=== PATIENT | male | born 1980 | race Caucasian/White ===

== ENCOUNTER 2017-03-11 09:01 | Day surgery (SDC) | payer BC ==
[~2017-03-11 09:01] MED LIST: Lactated Ringers 1,000 ML IV SCH; Sodium Chloride 0.9% 10 ML Syringe FLUSH PRN
[2017-03-11] MEDS ORDERED: fentaNYL 100 MCG/2 ML SDV ONE ×2 (10:09→10:25)
[2017-03-11] MEDS ORDERED: Midazolam 1 MG/ML 2 ML SDV ONE ×2 (10:10→10:25)
[2017-03-11] MEDS ORDERED: Ketamine 500 mg/10 ML MDV ONE ×2 (10:10→10:25)
[2017-03-11] MEDS ORDERED: Propofol 200 MG/20 ML SDV ONE ×2 (10:11→10:25)
--- NOTE | 2017-03-11 10:18 | PCM.PN ---
- General Info Date of Service: 03/11/17 - Review of Systems Systems Review Comment:: 37-year-old male here for hemorrhoidectomy. He is medically stable to proceed today with no significant recent change in his health status. His recent history and physical is reviewed and there is no significant change from that time. I have discussed the proposed operative procedure with the patient. Questions are answered. He agrees to proceed accepting risks. - Patient Data Vitals - Most Recent: Last Vital Signs Temp 98.5 F 03/11/17 09:22 Pulse 101 H 03/11/17 09:22 Resp 20 03/11/17 09:22 BP 142/85 H 03/11/17 09:22 Pulse Ox 100 03/11/17 09:22 Weight - Most Recent: 69.853 kg Med Orders - Current: Current Medications Lactated Ringer's (Ringers, Lactated) 1,000 mls @ 125 mls/hr IV ASDIRECTED JED Last Admin: 03/11/17 09:45 Dose: 125 mls/hr Sodium Chloride (Saline Flush) 10 ml FLUSH ASDIRECTED PRN PRN Reason: Keep Vein Open Discontinued Medications Fentanyl (Sublimaze) Confirm Administered Dose 100 mcg .ROUTE .STK-MED ONE Stop: 03/11/17 10:10 Ketamine HCl (Ketalar) Confirm Administered Dose 500 mg .ROUTE .STK-MED ONE Stop: 03/11/17 10:11 Midazolam HCl (Versed 1 Mg/Ml) Confirm Administered Dose 4 mg .ROUTE .STK-MED ONE Stop: 03/11/17 10:11 Propofol (Diprivan 20 Ml) Confirm Administered Dose 400 mg .ROUTE .STK-MED ONE Stop: 03/11/17 10:12 - Problem List Review Problem List Initiated/Reviewed/Updated: Yes - My Orders Last 24 Hours: My Active Orders 03/11/17 09:00 Patient Status [ADT] Routine Peripheral IV Care [RC] . DIRECTED Verify Patient Consent Obtain [RC] ASDIRECTED Lactated Ringers [Ringers, Lactated] 1,000 ml IV ASDIRECTED Sodium Chloride 0.9% [Saline Flush] 10 ml FLUSH ASDIRECTED PRN Peripheral IV Insertion Adult [OM.PC] Routine - Assessment Assessment:: Symptomatic hemorrhoids - Plan Plan:: Hemorrhoidectomy
[2017-03-11] MEDS ORDERED: ceFAZolin 1 GM Vial ONE (10:25)
[2017-03-11] MEDS ORDERED: Lidocaine 2% with EPINEPHrine 1:100,000 20 ML MDV INJECT ONE (10:51)
[2017-03-11] MEDS ORDERED: Bupivacaine 0.25% 10 ML SDV INJECT ONE (10:52)
--- NOTE | 2017-03-11 11:43 | PCM.OPNOTE ---
- General Post-Op/Procedure Note Date of Surgery/Procedure: 03/11/17 Operative Procedure(s): Hemorrhoidectomy Findings: 3 Moderate sized hemorrhoids Pre Op Diagnosis: Symptomatic hemorrhoids Post-Op Diagnosis: Same Anesthesia Technique: Local, MAC Primary Surgeon: Stalin Jiang Pathology: Hemorrhoids Output, Urine Amount: 0 EBL in mLs: 50 Complications: None Condition: Good Free Text/Narrative:: Intake & Output 03/10/17 03/11/17 03/11/17 22:59 06:59 14:59 Intake Total 1100 Balance 1100
[2017-03-11 14:07] VITALS: BP 144/82
--- NOTE | 2017-03-12 07:58 | OR ---
Date of Procedure: 03/11/2017 PREOPERATIVE DIAGNOSIS: Symptomatic hemorrhoids. POSTOPERATIVE DIAGNOSIS: Symptomatic hemorrhoids. OPERATION PERFORMED: Hemorrhoidectomy. INDICATIONS FOR SURGERY: This 37-year-old male has developed symptoms of prominent hemorrhoids. He has had a small amount of bleeding from them, and comes now for hemorrhoidectomy. FINDINGS: The patient has three significant hemorrhoids. The largest of these is at the 11 o'clock position on the patient's right side, this is a moderate to large size internal and external hemorrhoid complex. The smaller external hemorrhoids were noted at the 7 and 4 o'clock positions. Structures otherwise appeared normal. PROCEDURE IN DETAIL: The patient was taken to the operating room. He was placed in dorsal lithotomy position, and the perirectal area was sterilely prepped with Betadine and draped. Under good IV sedation, local infiltration of the perirectal area was performed with Xylocaine-Marcaine mix with epinephrine. Digital dilation of the anal canal was performed, and then the operating anoscope was inserted. Findings were as described above. In turn, each of these three hemorrhoids was excised. The hemorrhoidal vessels were suture ligated with 2-0 Vicryl. The hemorrhoid itself was excised preserving the underlying sphincter muscle. The mucosal defect at each location was closed with a running 2-0 Vicryl. The three hemorrhoids are thereby removed, and there was no evidence of any complication. Inspection showed good hemostasis to be maintained. A dibucaine ointment covered, Adaptic pack was placed. Sterile dressing was applied. The patient was then taken from the operating room in satisfactory condition. ESTIMATED BLOOD LOSS: 50 mL. COMPLICATIONS: None. PROGNOSIS: Good. CAROLE Jiang MD /[id number]
== END 2017-03-11 13:08 | disposition home or self-care (01) ==
LOC: LL.SDS 09:01
PROVIDERS: ATTEND Surgery
DX: K64.8 Other hemorrhoids (principal); K64.4 Residual hemorrhoidal skin tags; Z88.6 Allergy status to analgesic agent
CPT/HCPCS: 46255; J0690; J2250; J2704; J3010; J7120

== ENCOUNTER 2020-12-10 11:40 | Emergency (ER) | payer BC ==
[2020-12-10] MEDS ORDERED: Lactated Ringers 1,000 ML IV ONE (11:52)
[2020-12-10] MEDS ORDERED: Ondansetron 4 MG/2 ML SDV IV ONE (11:52)
[2020-12-10] MEDS ORDERED: LORazepam 2 MG/ML SDV IVPUSH ONE (11:53)
[2020-12-10] MEDS ORDERED: Folic Acid 1 MG Tab PO ONE (11:54)
[2020-12-10] MEDS ORDERED: Thiamine 100 MG Tab PO ONE (11:54)
[2020-12-10] MEDS ORDERED: Multivitamin Tab PO STA (11:54)
--- NOTE | 2020-12-10 12:00 | EDM.PDOC ---
ED HPI GENERAL MEDICAL PROBLEM - General Chief Complaint: General Stated Complaint: cramping Time Seen by Provider: 12/10/20 11:45 Source of Information: Reports: Patient History Limitations: Reports: No Limitations - History of Present Illness INITIAL COMMENTS - FREE TEXT/NARRATIVE: Patient comes emergency department today from work with complaints of generalized shaking and cramping. This patient denies any chronic medical history other than alcohol usage. He reports that he drinks alcohol on a daily basis about 6-10 beers daily. Today while he was at work he was just overcome by generalized shaking throughout his body and anxiety. He has abdominal cramping. Nausea without vomiting. No chest pain no shortness of breath or difficulty breathing. No cough or congestion. No fever no chills. No hematuria dysuria urinary frequency. No black or tarry stools. He denies any history of pancreatitis or alcohol withdrawal syndrome. NO hallucinations or delusions or confusion. His last alcohol intake was last evening. He had a similar episode a few years ago at the same time of the day when he went to work. chest arms hands Pain Score (Numeric/FACES): 5 - Related Data Allergies Allergy/AdvReac Type Severity Reaction Status Date / Time ibuprofen Allergy Hives Verified 12/10/20 11:42 Home Meds: Home Meds Metoprolol Succinate [Toprol XL] 25 mg PO DAILY #30 tab.er 01/07/18 [Rx] Calcium Acetate [PhosLo] 667 mg PO DAILY #5 cap 12/10/20 [Rx] Folic Acid 1 mg PO DAILY #30 tab 12/10/20 [Rx] Magnesium Oxide 400 mg PO DAILY #8 tab 12/10/20 [Rx] Thiamine [Vitamin B-1] 100 mg PO DAILY #30 tablet 12/10/20 [Rx] amLODIPine [Norvasc] 10 mg PO DAILY 12/10/20 [History] Past Medical History HEENT History: Reports: None Cardiovascular History: Reports: Hypertension, Other (See Below) Other Cardiovascular History: Hypertension with no medical therapy to this point. Respiratory History: Reports: Other (See Below) Other Respiratory History: Possible left rib fracture at age 16. Gastrointestinal History: Reports: Hemorrhoids, Other (See Below) Other Gastrointestinal History: Hemorrhoidectomy as below. Genitourinary History: Reports: None Musculoskeletal History: Reports: Arthritis, Fracture, Neck Pain, Chronic, Osteo arthritis, Other (See Below) Other Musculoskeletal History: Possible rib fracture as above. Minimal scoliosis. Neurological History: Reports: Headaches, Chronic Psychiatric History: Reports: None Endocrine/Metabolic History: Reports: None Hematologic History: Reports: None Immunologic History: Reports: None Oncologic (Cancer) History: Reports: None Dermatologic History: Reports: None - Infectious Disease History Infectious Disease History: Reports: Chicken Pox - Past Surgical History Head Surgeries/Procedures: Reports: None HEENT Surgical History: Reports: Oral Surgery, Other (See Below) Other HEENT Surgeries/Procedures: Price teeth extraction 4 in his late 20s. Cardiovascular Surgical History: Reports: None Respiratory Surgical History: Reports: None GI Surgical History: Reports: Appendectomy, Colonoscopy, EGD, Other (See Below) Other GI Surgeries/Procedures: Appendectomy at about age 13. Hemorrhoidectomy on 03/11/17. EGD and colonoscopy on 09/07/13. Male Surgical History: Reports: Circumcision, Vasectomy, Other (See Below) Other Male Surgeries/Procedures: Vasectomy in 2007. Circumcision as an infan t. Neurological Surgical History: Reports: None Musculoskeletal Surgical History: Reports: None Oncologic Surgical History: Reports: None Dermatological Surgical History: Reports: None - Past Imaging History Past Imaging History: Reports: CAT Scan (CT scan of the abdomen and pelvis on 09/04/13.), MRI (MRI of right shoulder in about 2011.), Ultrasound (Abdominal ultrasound on 08/17/07.) Social & Family History - Family History HEENT: Reports: Macular Degeneration, Other (See Below) Other HEENT Family History: Father with macular degeneration. Cardiac: Reports: CAD, Heart Murmur, Hypertension, LA, Stent, Other (See Below) Other Cardiac Family History: Hypertension in parents and sister. Maternal grandmother with LA and PTCA/stents 2 in her 60s. Maternal great aunts 3 with valvular disease. Mother with acute LA Respiratory: Reports: None GI: Reports: None : Reports: Diabetic Nephropathy, Renal Disease/Insufficiency, Other (See Below) Other Family History: Maternal grandmother with fatal diabetic nephropathy at age 86. OBGYN: Reports: None Musculoskeletal: Reports: None Neurological: Reports: None Psychiatric: Reports: None Endocrine/Metabolic: Reports: Diabetes, type II, IDDM, Other (See Below) Other Endocrine/Metabolic Family History: Maternal grandmother with IDDM. Hematologic: Reports: None Immunologic: Reports: None Dermatologic: Reports: None Oncologic: Reports: Hodgkin's Lymphoma, Lymphoma, Other (See Below) Other Oncologic Family History: Maternal grandfather with with history of unknown type of metastatic cancer in his 70s. Son with AML at age 8 and Hodgkin's lymphoma at age 10. - Caffeine Use Caffeine Use: Reports: Coffee (5 cups per day), Soda (1 soda per day). Denies: Energy Drinks, Tea - Living Situation & Occupation Living situation: Reports: (2003, 4 children) Occupation: Employed ([employer]) ED ROS GENERAL - Review of Systems Review Of Systems: Comprehensive ROS is negative, except as noted in HPI. ED EXAM, GENERAL - Physical Exam Exam: See Below Free Text/Narrative:: Pt is sitting and has a fine shaking tremor to all extremities. No ocular nerve palsy noted. No delirium or hallucinations. Exam Limited By: No Limitations General Appearance: Alert, WD/WN, Anxious Eye Exam: Bilateral Eye: EOMI, PERRL Ears: Normal External Exam, Normal TMs Nose: Normal Inspection Throat/Mouth: Normal Inspection, Normal Lips, Normal Teeth, Normal Voice Head: Atraumatic, Normocephalic Neck: Normal Inspection, Supple, Non-Tender, Full Range of Motion Respiratory/Chest: No Respiratory Distress, Lungs Clear, Normal Breath Sounds, No Accessory Muscle Use, Chest Non-Tender Cardiovascular: Normal Peripheral Pulses, Regular Rate, Rhythm, Tachycardia Peripheral Pulses: 2+: Radial (L), Radial (R), Posterior Tibial (L), Posterior Tibial (R), Dorsalis Pedis (L), Dorsalis Pedis (R) GI/Abdominal: Normal Bowel Sounds, Soft, Non-Tender, No Distention (Male) Exam: Deferred Rectal (Males) Exam: Deferred Back Exam: Normal Inspection, Full Range of Motion Extremities: Normal Inspection, Normal Range of Motion, No Pedal Edema, Normal Capillary Refill Neurological: Alert, Oriented, Normal Cognition, No Motor/Sensory Deficits Psychiatric: Anxious Skin Exam: Warm, Dry, Intact, Normal Color Lymphatic: No Adenopathy Course - Vital Signs Last Recorded V/S: Last Vital Signs Temp 98.4 F 12/10/20 11:40 Pulse 95 12/10/20 11:40 Resp 18 12/10/20 11:40 BP Pulse Ox 98 12/10/20 11:40 - Orders/Labs/Meds Orders: Active Orders 24 hr Category Date Time Status Lactated Ringers [Ringers, Lactated] 1,000 ml Med 12/10/20 13:00 Active IV ASDIRECTED Medication Orders Lactated Ringer's (Ringers, Lactated) 1,000 mls @ 250 mls/hr IV ASDIRECTED JED Last Admin: 12/10/20 13:04 Dose: 250 mls/hr Documented by: RADHA Labs: Laboratory Tests 12/10/20 12/10/20 12/10/20 Range/Units 12:05 12:05 12:05 WBC 9.9 (4.0-10.2) K/uL RBC 4.62 (4.33-5.41) M/uL Hgb 15.5 (13.1-16.8) g/dL Hct 43.2 (39.0-49.0) % MCV 93.5 (84.0-98.0) fL MCH 33.5 H (28.2-33.3) pg MCHC 35.9 (31.7-36.0) g/dL RDW 12.0 (11.2-14.1) % Plt Count 217 (150-350) K/uL Neut % (Auto) 77.8 (45.0-80.0) % Lymph % (Auto) 13.4 (10.0-50.0) % [facility] % (Auto) 8.6 (2.0-14.0) % Eos % (Auto) 0.0 (0.0-5.0) % Baso % (Auto) 0.2 (0.0-2.0) % Neut # (Auto) 7.69 H (1.40-7.00) K/uL Lymph # (Auto) 1.32 (0.50-3.50) K/uL [facility] # (Auto) 0.85 (0.00-1.00) K/uL Eos # (Auto) 0.00 (0.00-0.50) K/uL Baso # (Auto) 0.02 (0.00-0.20) K/uL VBG pH (7.31-7.41) VBG pCO2 (41-51) mmHG VBG pO2 mmHG VBG HCO3 (23-28) mmol/L VBG Total CO2 mmol/L VBG O2 Saturation % VBG Base Excess ((-2)-3) mmol/L O2 Delivery Device Sodium (136-145) mmol/L Potassium (3.5-5.1) mmol/L Chloride (98-107) mmol/L Carbon Dioxide (21.0-32.0) mmol/L Anion Gap (7-15) meq/L BUN (7-18) mg/dL Creatinine (0.51-1.17) mg/dL Est Cr Clr Drug Dosing Estimated GFR (MDRD) mL/min Glucose (70-99) mg/dL Lactic Acid (0.4-2.0) mmol/L Calcium (8.5-10.1) mg/dL Phosphorus (2.6-4.7) mg/dL Magnesium (1.8-2.4) mg/dL Total Bilirubin (0.2-1.0) mg/dL AST (15-37) U/L ALT (12-78) U/L Alkaline Phosphatase (46-116) IU/L Creatine Kinase (26-308) U/L Total Protein (6.4-8.2) g/dL Albumin (3.4-5.0) g/dL Lipase (73-393) U/L TSH, Ultra Sensitive (0.358-3.740) mIU/mL Specimen Type Urinvoid Urine Color Yellow Urine Appearance Clear Urine pH 7.5 (5.0-9.0) Ur Specific [place] 1.020 (1.005-1.030) Urine Protein Negative (NEGATIVE) mg/dL Urine Glucose (UA) Negative (NEGATIVE) mg/dL Urine Ketones 15 H (NEGATIVE) mg/dL Urine Occult Blood Negative (NEGATIVE) Urine Nitrite Negative (NEGATIVE) Urine Bilirubin Negative (NEGATIVE) Urine Urobilinogen 0.2 (0.2-1.0) E.U./dL Ur Leukocyte Esterase Negative (NEGATIVE) Urine Opiates Screen Negative (NEGATIVE) Ur Buprenorphine Scrn Negative (NEGATIVE) Ur Oxycodone Screen Negative (NEGATIVE) Ur EDDP (Meth Metab) Negative (NEGATIVE) Ur Barbiturates Screen Negative (NEGATIVE) Ur Tricyclics Screen Negative (NEGATIVE) Ur Amphetamine Screen Negative (NEGATIVE) U Methamphetamines Scrn Negative (NEGATIVE) Urine MDMA Screen Negative (NEGATIVE) U Benzodiazepines Scrn Negative (NEGATIVE) U Cocaine Metab Screen Negative (NEGATIVE) U Marijuana (THC) Screen Negative (NEGATIVE) Ethyl Alcohol (0.000-0.080) g/dL 12/10/20 12/10/20 12/10/20 Range/Units 12:05 12:05 12:05 WBC (4.0-10.2) K/uL RBC (4.33-5.41) M/uL Hgb (13.1-16.8) g/dL Hct (39.0-49.0) % MCV (84.0-98.0) fL MCH (28.2-33.3) pg MCHC (31.7-36.0) g/dL RDW (11.2-14.1) % Plt Count (150-350) K/uL Neut % (Auto) (45.0-80.0) % Lymph % (Auto) (10.0-50.0) % [facility] % (Auto) (2.0-14.0) % Eos % (Auto) (0.0-5.0) % Baso % (Auto) (0.0-2.0) % Neut # (Auto) (1.40-7.00) K/uL Lymph # (Auto) (0.50-3.50) K/uL [facility] # (Auto) (0.00-1.00) K/uL Eos # (Auto) (0.00-0.50) K/uL Baso # (Auto) (0.00-0.20) K/uL VBG pH 7.58 H (7.31-7.41) VBG pCO2 26 L (41-51) mmHG VBG pO2 43 mmHG VBG HCO3 24 (23-28) mmol/L VBG Total CO2 25 mmol/L VBG O2 Saturation 87 % VBG Base Excess 4 H ((-2)-3) mmol/L O2 Delivery Device Room air Sodium 139 (136-145) mmol/L Potassium 3.4 L (3.5-5.1) mmol/L Chloride 101 (98-107) mmol/L Carbon Dioxide 24.9 (21.0-32.0) mmol/L Anion Gap 16.5 H (7-15) meq/L BUN 17 (7-18) mg/dL Creatinine 0.83 (0.51-1.17) mg/dL Est Cr Clr Drug Dosing TNP Estimated GFR (MDRD) > 60 mL/min Glucose 94 (70-99) mg/dL Lactic Acid 2.2 H (0.4-2.0) mmol/L Calcium 9.4 (8.5-10.1) mg/dL Phosphorus 1.1 L* (2.6-4.7) mg/dL Magnesium 1.6 L (1.8-2.4) mg/dL Total Bilirubin 0.6 (0.2-1.0) mg/dL AST 45 H (15-37) U/L ALT 54 (12-78) U/L Alkaline Phosphatase 63 (46-116) IU/L Creatine Kinase 199 (26-308) U/L Total Protein 7.7 (6.4-8.2) g/dL Albumin 4.4 (3.4-5.0) g/dL Lipase 85 (73-393) U/L TSH, Ultra Sensitive (0.358-3.740) mIU/mL Specimen Type Urine Color Urine Appearance Urine pH (5.0-9.0) Ur Specific [place] (1.005-1.030) Urine Protein (NEGATIVE) mg/dL Urine Glucose (UA) (NEGATIVE) mg/dL Urine Ketones (NEGATIVE) mg/dL Urine Occult Blood (NEGATIVE) Urine Nitrite (NEGATIVE) Urine Bilirubin (NEGATIVE) Urine Urobilinogen (0.2-1.0) E.U./dL Ur Leukocyte Esterase (NEGATIVE) Urine Opiates Screen (NEGATIVE) Ur Buprenorphine Scrn (NEGATIVE) Ur Oxycodone Screen (NEGATIVE) Ur EDDP (Meth Metab) (NEGATIVE) Ur Barbiturates Screen (NEGATIVE) Ur Tricyclics Screen (NEGATIVE) Ur Amphetamine Screen (NEGATIVE) U Methamphetamines Scrn (NEGATIVE) Urine MDMA Screen (NEGATIVE) U Benzodiazepines Scrn (NEGATIVE) U Cocaine Metab Screen (NEGATIVE) U Marijuana (THC) Screen (NEGATIVE) Ethyl Alcohol 0.001 (0.000-0.080) g/dL 12/10/20 Range/Units 12:05 WBC (4.0-10.2) K/uL RBC (4.33-5.41) M/uL Hgb (13.1-16.8) g/dL Hct (39.0-49.0) % MCV (84.0-98.0) fL MCH (28.2-33.3) pg MCHC (31.7-36.0) g/dL RDW (11.2-14.1) % Plt Count (150-350) K/uL Neut % (Auto) (45.0-80.0) % Lymph % (Auto) (10.0-50.0) % [facility] % (Auto) (2.0-14.0) % Eos % (Auto) (0.0-5.0) % Baso % (Auto) (0.0-2.0) % Neut # (Auto) (1.40-7.00) K/uL Lymph # (Auto) (0.50-3.50) K/uL [facility] # (Auto) (0.00-1.00) K/uL Eos # (Auto) (0.00-0.50) K/uL Baso # (Auto) (0.00-0.20) K/uL VBG pH (7.31-7.41) VBG pCO2 (41-51) mmHG VBG pO2 mmHG VBG HCO3 (23-28) mmol/L VBG Total CO2 mmol/L VBG O2 Saturation % VBG Base Excess ((-2)-3) mmol/L O2 Delivery Device Sodium (136-145) mmol/L Potassium (3.5-5.1) mmol/L Chloride (98-107) mmol/L Carbon Dioxide (21.0-32.0) mmol/L Anion Gap (7-15) meq/L BUN (7-18) mg/dL Creatinine (0.51-1.17) mg/dL Est Cr Clr Drug Dosing Estimated GFR (MDRD) mL/min Glucose (70-99) mg/dL Lactic Acid (0.4-2.0) mmol/L Calcium (8.5-10.1) mg/dL Phosphorus (2.6-4.7) mg/dL Magnesium (1.8-2.4) mg/dL Total Bilirubin (0.2-1.0) mg/dL AST (15-37) U/L ALT (12-78) U/L Alkaline Phosphatase (46-116) IU/L Creatine Kinase (26-308) U/L Total Protein (6.4-8.2) g/dL Albumin (3.4-5.0) g/dL Lipase (73-393) U/L TSH, Ultra Sensitive 0.614 (0.358-3.740) mIU/mL Specimen Type Urine Color Urine Appearance Urine pH (5.0-9.0) Ur Specific [place] (1.005-1.030) Urine Protein (NEGATIVE) mg/dL Urine Glucose (UA) (NEGATIVE) mg/dL Urine Ketones (NEGATIVE) mg/dL Urine Occult Blood (NEGATIVE) Urine Nitrite (NEGATIVE) Urine Bilirubin (NEGATIVE) Urine Urobilinogen (0.2-1.0) E.U./dL Ur Leukocyte Esterase (NEGATIVE) Urine Opiates Screen (NEGATIVE) Ur Buprenorphine Scrn (NEGATIVE) Ur Oxycodone Screen (NEGATIVE) Ur EDDP (Meth Metab) (NEGATIVE) Ur Barbiturates Screen (NEGATIVE) Ur Tricyclics Screen (NEGATIVE) Ur Amphetamine Screen (NEGATIVE) U Methamphetamines Scrn (NEGATIVE) Urine MDMA Screen (NEGATIVE) U Benzodiazepines Scrn (NEGATIVE) U Cocaine Metab Screen (NEGATIVE) U Marijuana (THC) Screen (NEGATIVE) Ethyl Alcohol (0.000-0.080) g/dL Meds: Medications Generic Name Dose Route Start Last Admin Trade Name Freq PRN Reason Stop Dose Admin Lactated Ringer's 1,000 mls @ 250 mls/hr 12/10/20 13:00 12/10/20 13:04 Ringers, Lactated IV 250 mls/hr ASDIRECTED JED Administration Discontinued Medications Generic Name Dose Route Start Last Admin Trade Name Freq PRN Reason Stop Dose Admin Folic Acid 1 mg 12/10/20 11:54 12/10/20 12:26 Folic Acid 1 Mg Tab PO 12/10/20 11:55 1 mg ONETIME ONE Administration Lactated Ringer's 1,000 mls @ 1,000 mls/hr 12/10/20 11:52 12/10/20 11:55 Ringers, Lactated IV 12/10/20 12:51 1,000 mls/hr .BOLUS ONE Administration Magnesium Sulfate 2 gm/ Premix 50 mls @ 25 mls/hr 12/10/20 13:21 12/10/20 13:32 IV 12/10/20 15:20 25 mls/hr ONETIME ONE Administration Lorazepam 1 mg 12/10/20 11:53 11/02/21 12:23 Lorazepam 2 Mg/Ml Sdv IVPUSH 12/10/20 11:54 1 mg ONETIME ONE Administration Multivitamins/Minerals/Vitamin C 1 tab 12/10/20 11:54 12/10/20 12:26 Multivitamin Tab PO 12/10/20 11:55 1 tab NOW STA Administration Ondansetron HCl 4 mg 12/10/20 11:52 12/10/20 12:26 Ondansetron 4 Mg/2 Ml Sdv IV 12/10/20 11:53 4 mg ONETIME ONE Administration Potassium Phos/Sodium Phos 1 each 12/10/20 12:45 12/10/20 13:04 Potassium Phosphate,Mb-Db/Sodium Phosphate,Mb-Db Packet PO 12/10/20 12:46 1 each NOW STA Administration Thiamine HCl 100 mg 12/10/20 11:54 12/10/20 12:26 Thiamine 100 Mg Tab PO 12/10/20 11:55 100 mg ONETIME ONE Administration Thiamine HCl Confirm 12/10/20 12:34 12/10/20 12:45 Thiamine 100 Mg Tab Administered 12/10/20 12:35 Not Given Dose 100 mg .ROUTE .STK-MED ONE - Re-Assessments/Exams Free Text/Narrative Re-Assessment/Exam: 12/10/20 12:07 IV established. Labs drawn. LR 1 liter wide open. Zofran and Ativan. CBC is rather unremarkable. CMP with a potassium 3.4, anion gap 16.5, creatinine BUN. Normal liver enzymes. Magnesium 1.6. 2 g magnesium sulfate IV piggyback. Phosphorus 1.1. Given sodium phosphate oral packet. Patient also received multivitamins thiamine and folic acid. After the above therapy the patient feels quite a bit better. His shaking and muscle spasms has resolved. CPK is normal at 199. TSH is normal. Lipase is normal. Patient does feel quite a bit better primarily after the Ativan. With his history of high-volume daily alcohol intake is severe hypophosphatemia hypomagnesemia hypokalemia his anxiety and shaking upon arrival I really have concerns that this is acute alcohol withdrawal. There is no evidence of delirium but he definitely had tremors upon arrival. 12/10/20 15:18 The patient is uninterested at this time to quit drinking and will continue tonight. So i do not feel that it is appropriate to dose with ativan at this time to prevent withdrawal as he we will continue drinking. I discussed the importance of him considering alcohol assessment and treatment although the patient is resistant at this time. I will treat for electrolyte abnormalities as well and advise him to follow up with PCP for alcohol use disorder which he is resistant to. Discharge instructions as below were explained to the patient he was comfortable with this plan and his questions answered. Departure - Departure Time of Disposition: 14:30 Disposition: Home, Self-Care 01 Clinical Impression: Alcohol use disorder, Hypokalemia, Hypophosphatemia, Hypomagnesemia Alcohol withdrawal Qualifiers: Complication of substance-induced condition: uncomplicated Qualified Code(s): F10.230 - Alcohol dependence with withdrawal, uncomplicated - Discharge Information *PRESCRIPTION DRUG MONITORING PROGRAM REVIEWED*: Not Applicable *COPY OF PRESCRIPTION DRUG MONITORING REPORT IN PATIENT SCOTTIE: Not Applicable Prescriptions: Folic Acid 1 mg PO DAILY #30 tab Magnesium Oxide 400 mg PO DAILY #8 tab Calcium Acetate [PhosLo] 667 mg PO DAILY #5 cap Thiamine [Vitamin B-1] 100 mg PO DAILY #30 tablet Instructions: Hypophosphatemia, Phosphate Test Referrals: Jimy Boyd PA [Primary Care Provider] - Forms: ED Department Discharge Additional Instructions: Drink plenty of fluids especially electrolyte containing fluids like gatorade and or powerade. Eat regular small meals. See your PCP wednesday or wednesday for recheck of electrolytes and consideration of alcohol use assessment. Calcium Acetate 1 tab daily for the next 5 days. RX sent to the pharmacy. Daily OTC multivitamin. Thiamine 1 tab daily. Folic Acid 1 tab daily. Consider discontinuation of alcohol consumption is advised at this time. Return to the ED if new or worsening symptoms. Sepsis Event Note (ED) - Focused Exam Vital Signs: Vital Signs Temp Temp Pulse Resp Pulse Ox 12/10/20 11:40 98.4 F 98.5 F 95 18 98 - My Orders Last 24 Hours: My Active Orders 12/10/20 13:00 Lactated Ringers [Ringers, Lactated] 1,000 ml IV ASDIRECTED - Assessment/Plan Last 24 Hours: My Active Orders 12/10/20 13:00 Lactated Ringers [Ringers, Lactated] 1,000 ml IV ASDIRECTED
[2020-12-10 12:22] LABS: O2 DELIVERY DEVICE ROOM AIR
[2020-12-10 12:29] LABS: PH,VENOUS 7.58 (7.31-7.41)
[2020-12-10 12:30] LABS: BASE EXCESS VENOUS 4 mmol/L ((-2)-3); BICARBONATE,VENOUS 24 mmol/L (23-28); CHLORIDE,CL 101 mmol/L (98-107); O2 SATURATION VENOUS 87 %; PCO2 VENOUS 26 mmHG (41-51); PO2 VENOUS 43 mmHG; SODIUM,NA 139 mmol/L (136-145)
[2020-12-10 12:33] LABS: ANION GAP 16.5 meq/L (7-15)
[2020-12-10 12:34] LABS: BARBITURATE SCREEN,URINE NEGATIVE (NEGATIVE); BENZODIAZEPINES SCREEN,URINE NEGATIVE (NEGATIVE); EDDP,URINE SCREEN NEGATIVE (NEGATIVE); TCA SCREEN,URINE NEGATIVE (NEGATIVE); THC SCREEN,URINE 50 NG/ML NEGATIVE (NEGATIVE)
[2020-12-10] MEDS ORDERED: Thiamine 100 MG Tab ONE (12:34)
[2020-12-10 12:37] LABS: BUPRENORPHINE SCREEN,URINE NEGATIVE (NEGATIVE)
[2020-12-10] MEDS ORDERED: Potassium Phosphate,Mb-Db/Sodium Phosphate,Mb-Db Packet PO STA (12:45)
[2020-12-10] MEDS ORDERED: Lactated Ringers 1,000 ML IV SCH (13:00)
[2020-12-10] MEDS ORDERED: Magnesium Sulfate/Water 2 GM in Premix Bag 1 BAG IV ONE (13:21)
[2020-12-10] MEDS ORDERED: LORazepam 1 MG Tab PO ONE (15:31)
[2020-12-10 20:03] VITALS: BP 151/85; PULSE 76
== END 2020-12-10 15:45 | disposition home or self-care (01) ==
LOC: LL.ED 11:40
DX: F10.230 Alcohol dependence with withdrawal, uncomplicated (principal); E87.6 Hypokalemia; E83.39 Other disorders of phosphorus metabolism; E83.42 Hypomagnesemia; I10 Essential (primary) hypertension; Z79.899 Other long term (current) drug therapy; Z88.8 Allergy status to other drugs, medicaments and biological substances
CPT/HCPCS: 36415; 80053; 80305-QW; 80307; 81003; 82550; 82803; 83605; 83690; 83735; 84100; 84443; 85025; 96365; 96375; 99284; 99284-25; A9270-GY; J2060; J2405; J3475; J7120

== ENCOUNTER 2024-09-28 12:14 | Emergency (ER) | payer OTHER, BC ==
[2024-09-28] MEDS: Bacitracin Oint 1 GM U/D Packet TOP ONE (13:24)
[2024-09-28] MEDS: Diphtheria,Pertussis(Acell),Tetanus Vaccine 0.5 ML Syringe IM ONE (13:24)
[2024-09-28 14:08] VITALS: BP 157/96; PULSE 114
== END 2024-09-28 13:30 | disposition home or self-care (01) ==
LOC: LL.ED 12:14
DX: S01.81XA Laceration without foreign body of other part of head, initial encounter (principal); I10 Essential (primary) hypertension; Z90.49 Acquired absence of other specified parts of digestive tract; Z88.6 Allergy status to analgesic agent; Z79.899 Other long term (current) drug therapy; W22.8XXA Striking against or struck by other objects, initial encounter; Y99.0 Civilian activity done for income or pay
CPT/HCPCS: 12011; 99282; J2003